=== PATIENT | female | born 1995 | race Caucasian/White ===

== ENCOUNTER 2019-03-09 20:55 | Emergency (ER) | payer SELFPAY ==
[2019-03-09] MEDS ORDERED: KETOROLAC TROMETHAMINE 60 MG/2 ML SDV IM ONE (23:31)
[2019-03-09] MEDS ORDERED: DEXAMETHASONE SOD PHOS INJ 10 MG/1 ML VIAL IM ONE (23:31)
[2019-03-09 23:44] VITALS: BP 147/99
--- NOTE | 2019-03-10 | ER Document Report ---
HPI - HPI Time Seen by Provider: 03/09/19 22:20 Pain Level: 4 Notes: Patient is an otherwise healthy 23-year-old female presenting to the emergency department with sore throat and feeling like her tonsils are swollen over the last 4 days. She denies any fevers. She denies any congestion, but reports cough. She reports history of strep, states she is supposed to see an ENT for some sinus issues but she has been unable to get an appointment. She denies any nausea, vomiting or diarrhea. - EENT EENT: REPORTS: Sore Throat - REPRODUCTIVE LMP: 3 wks ago Reproductive: DENIES: : Past Medical History - General Information source: Patient - Social History Smoking Status: Current Every Day Smoker Family History: Reviewed & Not Pertinent Patient has suicidal ideation: No Patient has homicidal ideation: No - Medical History Medical History: Negative Surgical Hx: Negative - Immunizations Immunizations up to date: Yes Hx Diphtheria, Pertussis, Tetanus Vaccination: Yes Vertical Provider Document - CONSTITUTIONAL Notes: PHYSICAL EXAMINATION: GENERAL: Well-appearing, well-nourished and in no acute distress. HEAD: Atraumatic, normocephalic. EYES: Pupils equal round extraocular movements intact, conjunctiva are normal. ENT: Nares patent, tonsillar swelling noted bilaterally with erythema and exudates, no evidence of peritonsillar abscess, uvula midline. NECK: Normal range of motion, no cervical lymphadenopathy. LUNGS: No respiratory distress, lung sounds clear and equal bilaterally. Bronchospasm noted with deep breaths. Musculoskeletal: Normal range of motion NEUROLOGICAL: Normal speech, normal gait. PSYCH: Normal mood, normal affect. SKIN: Warm, Dry, normal turgor, no rashes or lesions noted. - INFECTION CONTROL TRAVEL OUTSIDE OF THE [place] IN LAST 30 DAYS: No Course - Re-evaluation Re-evalutation: Laboratory 03/09/19 21:31 Group A Strep Rapid NEGATIVE Rapid strep is negative. Patient has no evidence of peritonsillar abscess. Patient will be given IM Decadron here in the emergency department. She will be discharged home with a prescription for Tessalon Perles. Patient understands throat culture culture pending. Patient given tips on symptomatic relief as outlined in her discharge instructions. She does understand ED return precautions. The patient's emergency department workup and current diagnosis were explained to the patient and or family. Follow-up instructions were provided. Medicat ions if prescribed were discussed. Instructions for when to return to the emergency department including specific worrisome symptoms were discussed with the patient and/or family. - Vital Signs Vital signs: Temp Pulse Resp BP Pulse Ox 98.9 F 91 17 147/99 H 100 03/09/19 23:43 03/09/19 23:43 03/09/19 23:43 03/09/19 23:43 03/09/19 23:43 Discharge - Discharge Clinical Impression: Sore throat Headache Qualifiers: Headache type: unspecified Headache chronicity pattern: unspecified pattern Intractability: not intractable Qualified Code(s): R51 - Headache Condition: Stable Disposition: HOME, SELF-CARE Additional Instructions: SORE THROAT: Sore throats may be caused by viruses, bacteria, or fungi. Most are due to a virus, and must get better on their own. Bacterial sore throats, particularly those due to "strep," need treatment with antibiotics. If an antibiotic is prescribed, be sure to take the medication for a full 10 days. Failure to take the antibiotic can result in complications such as rheumatic fever. Sometimes, an injection of antibiotics is given instead of pills or liquid. This single "shot" is equal in effectiveness to the oral medication. To relieve symptoms, take acetaminophen for pain. Sip clear liquids frequently, or eat popsicles or ice chips. Anesthetic sprays or lozenges may help. Make sure the air in the room is not too dry. Avoid using decongestants or antihistamines. Call the doctor if there is no improvement in two days, or if you have difficulty breathing, increasing throat pain, high fever, rash, or frequent vomiting. STEROID MEDICATION: You have been given a medicine of the cortisone/steroid class. This medication is used to control inflammation or allergy. It is usually only given for a short period of time, until the acute process subsides. There are usually no side effects from short-term use of cortisone-like medications. Some persons feel an increased sense of well-being and are not sleepy at bedtime. Long-term use of cortisone medications is best avoided, unless required for a severe condition. If your condition does not remit, or relapses after the course of corticosteroid medication, you should consult your physician. FOLLOW-UP CARE: If you have been referred to a physician for follow-up care, call the physicians office for an appointment as you were instructed or within the next two days. If you experience worsening or a significant change in your symptoms, notify the physician immediately or return to the Emergency Department at any time for re-evaluation. Please take the cough medicine that I have prescribed as directed. At nighttime please take [id number] Robitussin as all the cough medicine that I can prescribe have codeine in it which you are allergic to. Please follow-up with your primary care provider for consideration of a referral to an ENT as we discussed. A good ENT is Dr. Gillespie here in [place]. Someone will call you if there is any abnormality with your throat culture. Prescriptions: Benzonatate [Tessalon Perles 100 mg Capsule] 100 mg PO Q8HP PRN #30 capsule PRN Reason:
== END 2019-03-10 00:09 | disposition home or self-care (01) ==
LOC: ER 20:55
DX: J02.9 Acute pharyngitis, unspecified (principal); R51 Headache; J35.1 Hypertrophy of tonsils; R05 Cough
CPT/HCPCS: 87070; 87880; J1885; J1100